=== PATIENT | male | born 1970 | race Caucasian/White ===

== ENCOUNTER 2020-12-26 08:53 | Emergency (ER) | payer SELFPAY ==
[~2020-12-26] VITALS: Ht 180 cm; Wt 95.2 kg
[2020-12-26 09:02] VITALS: BP 130/56
[2020-12-26] MEDS ORDERED: IBUPROFEN 800 MG (MOTRIN) TAB PO STA (09:19)
--- NOTE | 2020-12-26 09:25 | ED Integumentary General ---
General Chief Complaint: Bite-Animal/Human/Insect Stated Complaint: BACK BITES/ROPE BURN,R ANKLE SNAKE BITE Nursing Triage Note: PT PRESENTS TO ED VIA POV FROM HOME WITH COMPLAINTS OF SANKE BITE TO R ANKLE YESTERDAY. BUG BITES/RASH TO BACK THAT HE NOTICED THIS AM, AND ABRASION TO R SIDE FROM A CABLE Source: patient Exam Limitations: no limitations History of Present Illness Date Seen by Provider: Dec 26, 2020 Time Seen by Provider: 09:08 Initial Comments Here with report of bug bites to his back as well as an abrasion from a cable from walking his dog to his back. The apparently the dog was going to try to lary a cat and a cable ran over his back and shoulder and caused the abrasion/f riction burn. He is unsure what he got into to cause the bug bites on his back. Also complains of snake bite to the right low ankle lateral aspect that occurred yesterday. He is unsure of the snake but it is over 24 hours old. His tetanus is not up-to-date. Timing/Duration: this morning Severity: mild, moderate Associated Symptoms: No fever Allergies and Home Medications Allergies Coded Allergies: No Known Drug Allergies (Unverified , 12/26/20) Home Medications No Active Prescriptions or Reported Meds Patient Home Medication List Home Medication List Reviewed: Yes Review of Systems Review of Systems Constitutional: see HPI; No chills, No fever EENTM: no symptoms reported Respiratory: no symptoms reported Cardiovascular: no symptoms reported Skin: see HPI, change in color, lesions, pruritus Past Omlwsze-Auookt-Sulyox Hx Patient Social History Tobacco Use?: No Use of E-Cig and/or Vaping dev: No Substance use?: No Alcohol Use?: Yes Alcohol Frequency: Once in a while Pt feels they are or have been: No Past Medical History Surgeries: No Respiratory: No Cardiac: No Physical Exam Vital Signs Vital Signs - First Documented 12/26/20 09:02 Temp 36.3 Pulse 74 Resp 18 B/P (MAP) 130/56 (80) Pulse Ox 98 Capillary Refill : Less Than 3 Seconds General Appearance: WD/WN, no apparent distress HEENT: PERRL/EOMI, pharynx normal Cardiovascular: regular rate, rhythm, no murmur Respiratory: lungs clear, normal breath sounds Skin: warm/dry, other (Several small lesions consistent with bug bites across the back. Does have linear 2 cm x 15 centimeters area of abrasion/friction burn to the right side of the upper back overlying the scapula. Very small, 3 dot wound to the lateral aspect of the right ankle distally that he reports is the area of the snakebite. There is no swelling or surrounding erythema. Looks very superficial.) Progress/Results/Core Measures Results/Orders My Orders Orders - LYNN COSTA MD Motrin 800 Mg Po (12/26/20 09:19) Dexamethasone Injection (Decadron Inje (12/26/20 09:30) Tdap (Boostrix) Im (12/26/20 09:30) Vital Signs/I&O 12/26/20 09:02 Temp 36.3 Pulse 74 Resp 18 B/P (MAP) 130/56 (80) Pulse Ox 98 Blood Pressure Mean: 80 Progress Progress Note : Progress Note Seen and evaluated. Topical antibiotic applied to wound for burn/abrasion and cover with dressing. Tetanus updated. Decadron 10 mg IM for bug bite areas. Ibuprofen 800 mg p.o. for pain. Discharged home with return precautions. Patient verbalized understanding of instructions and agreement with plan. Departure Impression Primary Impression: Friction burn Additional Impression: Insect bites Qualified Codes: S20.469A - Insect bite (nonvenomous) of unspecified back wall of thorax, initial encounter; W57.XXXA - Bitten or stung by nonvenomous insect and other nonvenomous arthropods, initial encounter Disposition: 01 HOME, SELF-CARE Condition: Improved Departure-Patient Inst. Decision time for Depature: 09:27 Referrals: NO,LOCAL PHYSICIAN (PCP/Family) Primary Care Physician Patient Instructions: Animal Bites (DC), Insect Bites and Stings (DC), Skin Vaughn (DC) Add. Discharge Instructions: All discharge instructions reviewed with patient and/or family. Voiced understanding. You may take ibuprofen 800 mg every 8 hours as needed for pain. You may also take Tylenol/acetaminophen 1000 mg every 8 hours as needed for pain. You should cover friction burn with antibiotic cream or ointments and dressing as needed. Wash wound daily. For the areas that appear to be insect bites, you may use topical hydrocortisone cream over each of the spots once or twice daily as needed. If they increase in redness, you may use antibiotic cream or ointment over the same areas. It is okay to use both at the same time. Return for worse pain, swelling, weakness, fever, increasing redness or other concerns as needed. Your tetanus shot was updated today. Scripts No Active Prescriptions or Reported Meds LYNN COSTA MD Dec 26, 2020 09:25
[2020-12-26] MEDS ORDERED: TETANUS,DIPTH,PERTUSS P/F (BOOSTRIX) 0.5 ML VIAL IM ONE (09:30)
== END 2020-12-26 09:43 | disposition home or self-care (01) ==
LOC: ER 08:56
DX: S40.211A Abrasion of right shoulder, initial encounter (principal); S20.461A Insect bite (nonvenomous) of right back wall of thorax, initial encounter; W57.XXXA Bitten or stung by nonvenomous insect and other nonvenomous arthropods, initial encounter; X50.0XXA Overexertion from strenuous movement or load, initial encounter
CPT/HCPCS: 90471; 90715; 96372

== ENCOUNTER 2021-07-19 09:29 | Emergency (ER) | payer SELFPAY ==
[~2021-07-19] VITALS: Ht 177.8 cm; Wt 92.2 kg
[2021-07-19] MEDS ORDERED: CYCLOBENZAPRINE 10 MG (FLEXERIL) TAB PO STA (10:09)
[2021-07-19] MEDS ORDERED: IBUPROFEN 600 MG (MOTRIN) TAB PO ONE (10:15)
[2021-07-19] MEDS ORDERED: ACETAMINOPHEN 500 MG TAB (TYLENOL) PO ONE (10:15)
--- NOTE | 2021-07-19 10:28 | Diagnostic Imaging Report ---
LUMBAR SPINE - 2-3 VIEWS INDICATION: Low back pain COMPARISON: None available. TECHNIQUE: 3 views of lumbosacral spine FINDINGS: Normal alignment of lumbar spine. Vertebral bodies are normal in stature. There is no ankylosis in the vertebral bodies, posterior elements or SI joints. Degenerative disc space narrowing is present at L4-L5. No syndesmophytes. IMPRESSION: 1. No structural changes of spondyloarthropathy. 2. No acute osseous abnormality of the lumbar spine. 3. Moderate degenerative disc disease at L4-L5. Dictated by: Dictated on workstation # [id number]
--- NOTE | 2021-07-19 10:36 | ED Back Pain ---
General Chief Complaint: Back Problems Stated Complaint: LOW BACK PAIN Nursing Triage Note: AMB TO ROOM WITH C/O LOW BACK PAIN ONSET MONDAY NO INJURY. Source of Information: Patient Exam Limitations: No Limitations History of Present Illness Date Seen by Provider: Jul 19, 2021 Time Seen by Provider: 09:34 Initial Comments 51-year-old male with no significant past medical history coming in due to low back pain. The pain started Monday, was slow in onset, and feels like an aching pain in his low back. It is not radiating anywhere, and he is denying any numbness or weakness associated with it. Having no issues going to the bathroom. Denies any trauma such as falling. Has never really had anything like this before. No history of cancer. No IV drug use. Tried ibuprofen yesterday which helped. Is otherwise denying any other acute complaints. Allergies and Home Medications Allergies Coded Allergies: No Known Drug Allergies (Unverified , 12/26/20) Patient Home Medication List Home Medication List Reviewed: Yes No Active Prescriptions or Reported Meds Review of Systems Constitutional: No chills EENTM: No blurred vision Respiratory: No cough Cardiovascular: No chest pain Gastrointestinal: No abdominal pain, No nausea, No vomiting Genitourinary: No decreased output, No discharge, No dysuria, No frequency, No hematuria Musculoskeletal: back pain Skin: no symptoms reported Psychiatric/Neurological: No Symptoms Reported All Other Systems Reviewed Negative Unless Noted: Yes Past Urqyivo-Octcbp-Ymdogg Hx Patient Social History Tobacco Use?: Yes Substance use?: No Alcohol Use?: Yes Alcohol Frequency: Rarely Past Medical History Surgeries: No Respiratory: No Cardiac: No Physical Exam Vital Signs Vital Signs - First Documented 07/19/21 09:54 Temp 36.0 Pulse 90 Resp 18 B/P (MAP) 130/60 (83) Pulse Ox 98 O2 Delivery Room Air Capillary Refill : Less Than 3 Seconds Height, Weight, BMI Height: '" Weight: lbs. oz. kg; 29.00 BMI Method: General Appearance: No Apparent Distress, WD/WN HEENT: PERRL/EOMI, Normal ENT Inspection, Pharynx Normal Neck: Full Range of Motion, Normal Inspection, Non Tender, Supple Cardiovascular: Regular Rate, Rhythm, No Edema, Normal Peripheral Pulses Respiratory: Chest Non Tender, Lungs Clear, Normal Breath Sounds, No Accessory Muscle Use, No Respiratory Distress Gastrointestinal: Normal Bowel Sounds, Non Tender, Soft; No Distended, No Guarding Back: Normal Inspection, No CVA Tenderness, No Vertebral Tenderness, Other (Muscular tenderness bilaterally in his lower back, negative straight leg test, 5 out of 5 strength with plantarflexion and dorsiflexion of his feet, 5-5 strength with knee extension and flexion and hip extension and flexion, normal distal sensation and reflexes) Extremity: Normal Capillary Refill, Normal Inspection, Normal Range of Motion, Non Tender, No Calf Tenderness, No Pedal Edema Neurologic/Psychiatric: Alert, No Motor/Sensory Deficits, Normal Mood/Affect, Other (Normal gait) Skin: Normal Color, Warm/Dry Lymphatic: No Adenopathy Progress/Results/Core Measures Results/Orders My Orders Orders - JULES CONCEPCION MD Lumbar Spine - 2-3 Views (07/19/21 10:09) Ibuprofen Tablet (Motrin Tablet) (07/19/21 10:15) Acetaminophen Tablet (Tylenol Tablet) (07/19/21 10:15) Cyclobenzaprine Tablet (Flexeril Tablet) (07/19/21 10:09) Medications Given in ED Current Medications Medications Dose Ordered Sig/Christian Route Start Time Stop Time Status Last Admin Dose Admin Acetaminophen 1,000 mg ONCE ONCE PO 07/19/21 10:15 07/19/21 10:16 DC 07/19/21 10:23 1,000 MG Ibuprofen 600 mg ONCE ONCE PO 07/19/21 10:15 07/19/21 10:16 DC 07/19/21 10:23 600 MG Vital Signs/I&O 07/19/21 09:54 Temp 36.0 Pulse 90 Resp 18 B/P (MAP) 130/60 (83) Pulse Ox 98 O2 Delivery Room Air Blood Pressure Mean: 83 Progress Progress Note : Progress Note 51-year-old male with above history coming in due to low back pain. ABCs were intact and vitals were stable on presentation. Physical exam reassuring with no focal abnormalities other than some muscular tenderness bilaterally in his lower back. No midline spinal tenderness. He has no red flags for midline back pain. X-ray with no fracture acute concerns. I recommend conservative treatment and outpatient follow-up with orthopedics if things do not improve. Diagnostic Imaging Diagonstic Imaging: Xray (lumbar spine) Comments [facility] [place] NAME: YASHIRA URIBE [facility] REC#: [id number] PT STATUS: REG ER : 1970 PHYSICIAN: JULES CONCEPCION MD ADMIT DATE: 07/19/21/ER Draft Date of Exam:07/19/21 LUMBAR SPINE - 2-3 VIEWS LUMBAR SPINE - 2-3 VIEWS INDICATION: Low back pain COMPARISON: None available. TECHNIQUE: 3 views of lumbosacral spine FINDINGS: Normal alignment of lumbar spine. Vertebral bodies are normal in stature. There is no ankylosis in the vertebral bodies, posterior elements or SI joints. Degenerative disc space narrowing is present at L4-L5. No syndesmophytes. IMPRESSION: 1. No structural changes of spondyloarthropathy. 2. No acute osseous abnormality of the lumbar spine. 3. Moderate degenerative disc disease at L4-L5. Dictated on workstation # [id number] Dict: 07/19/21 1026 Trans: 07/19/21 1028 [facility] [id number] Interpreted by: LY RODRIGUEZ MD Electronically signed by: Departure Impression Primary Impression: Low back pain Qualified Codes: M54.50 - Low back pain, unspecified Disposition: HOME, SELF-CARE Condition: Stable Departure-Patient Inst. Decision time for Depature: 10:34 Referrals: NO,LOCAL PHYSICIAN (PCP) Primary Care Physician ROXANNA MAK MD Patient Instructions: Low Back Pain in Adults Add. Discharge Instructions: Your x-ray looks normal. Take ibuprofen 600 mg every 6 hours as well as Tylenol 1000 mg every 6-8 hours. Also buy an ybcl-bwn-yatjwqc lidocaine patch which you can place on there for 12 hours at a time. I wrote for a muscle relaxer which can make you sleepy so be careful driving with this or working heavy machinery. If pain is not significantly better in the next 1 to 2 weeks and please follow- up with Dr. MAK who is an orthopedic doctor. Scripts Cyclobenzaprine HCl (Cyclobenzaprine HCl) 10 Mg Tablet 10 MG PO Q8H PRN for SPASMS for 7 Days, #21 TAB Prov: JULES CONCEPCION MD 07/19/21 Work/School Note: Work Release Form Date Seen in the Emergency Department: Jul 19, 2021 Return to Work: Jul 21, 2021 Restrictions: No Restrictions JULES CONCEPCION MD Jul 19, 2021 10:36
[2021-07-19] MEDS ORDERED: CYCL10TA25 PO (10:37)
[2021-07-19 10:43] VITALS: BP 130/60
== END 2021-07-19 10:43 | disposition home or self-care (01) ==
LOC: EDUNIT# 09:29 → ER 09:32
DX: M54.50 Low back pain, unspecified (principal)
CPT/HCPCS: 72100; 99283

== ENCOUNTER 2023-05-25 15:28 | Emergency (ER) | payer MEDICAID, OTHER ==
[~2023-05-25] VITALS: Ht 177.8 cm; Wt 90.7 kg
[~2023-05-25 15:28] MED LIST: CYCL10TA25 PO
[2023-05-25 15:33] VITALS: BP 143/76
--- NOTE | 2023-05-25 15:57 | ED General ---
General Chief Complaint: General Problems/Pain Stated Complaint: ASPRIRATED, PASSED OUT 1MIN Source of Information: Patient Exam Limitations: No Limitations History of Present Illness Date Seen by Provider: May 25, 2023 Time Seen by Provider: 15:55 Initial Comments Patient is a 52-year-old male with a history of IV drug use, A-fib, liver failure, kidney failure, hep C presents to ED for syncopal episode. Patient was driving to [place] with significant other. Patient had a coughing fit trying to get up mucus out of his lung. Patient went limp for about 1 minute. Patient appeared confused. this happen 15 minutes before arrival. Started coughing and then vomite. He states he has been experiencing this over the past several months. States he was seen at [facility] in [place] right before Thanks diagnosed with liver failure and kidney failure. He does have a primary care physician at [facility] that he does see for this. States it was recommended to be treated for hep C but patient is not wanting to. They gave patient till spring to live. On arrival he is coughing. He reports intermittent shortness of breath. Denies chest pain. States over the past 2 days he felt like his lungs were full of fluid. This result of him vomiting and coughing up phlegm when he gets "full". Oxygen 100% on arrival. Heart rate around 100. Denies of any chest pain or abdominal pain. States he did have some bloody stools before Thanks. He states this has improved. Not currently on anticoagulants. Does report a headache right before the time he had the syncopal episode but the headache has improved. Dizziness and lightheadedness. He has been experiencing headaches. Alcohol use 4 years ago none currently. Last meth use was 2 days ago. Patient does not want any further treatment. He is requesting something for nausea. Patient is wanting to go and does not want any further medical treatment. Discussed with patient that he may potentially in the next few days or weeks without any specific treatment. Patient acknowledges the risk. Allergies and Home Medications Allergies Coded Allergies: No Known Drug Allergies (Unverified , 12/26/20) Patient Home Medication List Home Medication List Reviewed: Yes Cyclobenzaprine HCl (Cyclobenzaprine HCl) 10 Mg Tablet, 10 MG PO Q8H PRN for SPASMS Prescribed by: JULES CONCEPCION on 07/19/21 1037 Ondansetron (Ondansetron Odt) 4 Mg Tab.rapdis, 4 MG SL Q4H PRN for NAUSEA/VOMITING Prescribed by: SUKUMAR OATES on 05/25/23 1600 Review of Systems Review of Systems Constitutional: No chills, No diaphoresis; malaise, weakness EENTM: No blurred vision, No double vision Respiratory: cough; No dyspnea on exertion; short of breath Gastrointestinal: No abdominal pain, No diarrhea; nausea; No vomiting Genitourinary: No decreased output, No discharge Musculoskeletal: No back pain Skin: No change in color, No change in hair/nails Psychiatric/Neurological: Denies Anxiety, Denies Depressed; Other (Syncope) All Other Systems Reviewed Negative Unless Noted: Yes Past Brmmiot-Qkoybr-Cgvzam Hx Past Medical History Surgeries: No Respiratory: No Cardiac: No Physical Exam Vital Signs Vital Signs - First Documented 05/25/23 15:33 Temp 36.2 Pulse 100 Resp 18 B/P (MAP) 143/76 (98) Pulse Ox 99 O2 Delivery Room Air Capillary Refill : Height, Weight, BMI Height: '" Weight: lbs. oz. kg; 29.00 BMI Method: General Appearance: No Apparent Distress, WD/WN Eyes: Bilateral Eye Normal Inspection, Bilateral Eye PERRL, Bilateral Eye EOMI HEENT: PERRL/EOMI, TMs Normal, Normal ENT Inspection, Pharynx Normal Neck: Full Range of Motion, Normal Inspection, Non Tender, Supple Respiratory: Chest Non Tender, Lungs Clear, Wheezing Cardiovascular: No Gallop, No JVD, No Murmur, Tachycardia Gastrointestinal: Normal Bowel Sounds, No Organomegaly, No Pulsatile Mass Back: Normal Inspection, No CVA Tenderness, No Vertebral Tenderness Extremity: Normal Capillary Refill, Normal Inspection, Normal Range of Motion, Non Tender Neurologic/Psychiatric: Alert, Oriented x3, No Motor/Sensory Deficits, Normal Mood/Affect, 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 Norm as Tested Skin: Normal Color, Warm/Dry Progress/Results/Core Measures Suspected Sepsis SIRS Temperature: Pulse: Respiratory Rate: Blood Pressure / Mean: Results/Orders My Orders Orders - JULES ESTES Ekg Tracing (05/25/23 15:45) O2 (05/25/23 15:45) Monitor-Rhythm Ecg Trace Only (05/25/23 15:45) Ed Iv/Invasive Line Start (05/25/23 15:45) Ondansetron Oral Dissolve Tab (Ondanset (05/25/23 16:00) Medications Given in ED Current Medications Medications Dose Ordered Sig/Christian Route Start Time Stop Time Status Last Admin Dose Admin Ondansetron HCl 4 mg ONCE ONCE PO 05/25/23 16:00 05/25/23 16:01 DC 05/25/23 15:55 4 MG Vital Signs/I&O 05/25/23 15:33 Temp 36.2 Pulse 100 Resp 18 B/P (MAP) 143/76 (98) Pulse Ox 99 O2 Delivery Room Air Capillary Refill : Departure Communication (PCP) On arrival patient alert and oriented x 4. Coughing up mucus. No active hemoptysis. Denies any chest pain, Abdomen pain. did report headache before arrival but has been experiencing headaches for a few months. States he was seen at [facility] diagnosed with liver failure and kidney failure last month. refused treatment. States he was diagnosed with hep C recently. Not currently wanting treatment. He told me directly that his provider gave him until spring to live. Patient has been coughing up mucus episodes of hemoptysis. He did have episode of dark tarry stool before Thanksgiving was seen at [facility]. Recommended admission patient refused. On arrival patient is not hypoxic. 98- 100 percent on room air. Did have some mild wheeze in the lower lung allen. Meth use 2 days ago. Denies any current alcohol use. History A-fib not currently on anticoagulant. Significant other states patient has been slightly more confused. Syncopal episode right before arrival for around 1 minute. Patient was coughing right before. Patient cannot recall having a episode. Patient has no focal neural deficits. Headache has improved. No current chest pain short of breath abdominal pain. Coughing up mucus. Did vomit right before he checked in. Concerning for hepatic encephalopathy . Recommended CT scan of the chest abdomen pelvis CT scan of the head generalized lab work ammonia level lactic acid blood cultures. Patient refused any further treatment at this time. He is requesting oral medication for nausea. I did provide him Zofran. Discussed with patient that he may potentially get worse over the next few days or weeks. Potentially may if no further treatment due to respiratory failure and cardiac . Patient acknowledges the risk. He refused any other treatment. Requesting oral Zofran and he will follow-up with his primary care physician. I discussed with his significant other that he may not survive if no further treatment. Patient is coherent and is able to make his own medical decisions but felt like treatment is needed but will respect patient wishes. Impression Primary Impression: Syncope Disposition: AGAINST MEDICAL ADVICE Condition: Stable/Unchanged Departure-Patient Inst. Decision time for Depature: 15:59 Referrals: [facility] NO,LOCAL PHYSICIAN (PCP) Primary Care Physician Patient Instructions: Syncope (Fainting) (DC) Add. Discharge Instructions: Recommend getting further treatment. Zofran for nausea. All discharge instructions reviewed with patient and/or family. Voiced unders tanding. Scripts Ondansetron (Ondansetron Odt) 4 Mg Tab.rapdis 4 MG SL Q4H PRN for NAUSEA/VOMITING, #8 TAB Prov: JULES ESTES 05/25/23 JULES ESTES May 25, 2023 15:57
[2023-05-25] MEDS ORDERED: ONDA4TAB11 SL (16:00)
[2023-05-25] MEDS ORDERED: ONDANSETRON 4 MG ORAL DISSOLVE TABLET PO ONE (16:00)
== END 2023-05-25 16:18 | disposition left against medical advice (07) ==
LOC: EDUNIT# 15:28 → ER 15:31
DX: R55 Syncope and collapse (principal); R11.10 Vomiting, unspecified; I48.91 Unspecified atrial fibrillation; Z79.01 Long term (current) use of anticoagulants
CPT/HCPCS: 99283